=== PATIENT | female | born 1970 | race Caucasian/White ===

== ENCOUNTER → 2016-09-30 | Outpatient (REF) | payer OTHER ==
[~2016-09-30] MED LIST: /ESOM40CA PO; ATIV0.5T3 PO; CARB1TAB20 PO; CETI10TA PO; Cogentin PO; HALD100I2 IM; Haldol PO; KLON0.5T OR; KLON1TAB PO; LATU40TA PO; LITH300C PO; NADO40TA PO; PATANASE NASAL SPRAY; SERT25TA85 PO; TOPA25TA10 PO; ZYRT10TA2 PO; [UNRECOGNIZED DRUG - CODE] PO
[2016-10-03 00:06] LABS: Lyme Disease IgG/IgM Antibodie <0.91 ISR (0.00-0.90); Lyme Disease IgM Ab Quantitati <0.80 index (0.00-0.79)
== END ==
LOC: M LAB REF 16:32
PROVIDERS: ATTEND Internal Medicine
DX: M25.50 Pain in unspecified joint (principal); H53.142 Visual discomfort, left eye

== ENCOUNTER 2018-06-30 07:09 | Day surgery (SDC) | payer OTHER ==
[2018-06-30] MEDS: NS 1,000 ML IV (08:15)
[2018-06-30] MEDS ORDERED: PROPOFOL 200 MG/20 ML VIAL As Ordered ×5 (09:04→09:10)
[2018-06-30] MEDS ORDERED: LIDOCAINE 2% INJ 100 MG/5 ML SDV (FOR ANES.) As Ordered (09:04)
== END 2018-06-30 10:15 | disposition home or self-care (01) ==
LOC: M OPP 07:09
DX: K59.4 Anal spasm (principal); K21.0 Gastro-esophageal reflux disease with esophagitis; K22.2 Esophageal obstruction; R13.10 Dysphagia, unspecified
CPT/HCPCS: 45378

== ENCOUNTER 2018-07-22 22:44 | Emergency (ER) | payer OTHER ==
[~2018-07-22] VITALS: Ht 162.6 cm; Wt 72.7 kg
[~2018-07-22 22:44] MED LIST changes: +FLON1SPR; +GABA600T; +HYOS125TA SL; +NEXI20CA PO; +OLAN15TA; +OLAN2.5T; +SERT25TA PO; -SERT25TA85 PO; +TOPA1TAB PO; -TOPA25TA10 PO; +ZYRT10CA5 PO; -ZYRT10TA2 PO
[2018-07-22 23:30] LABS: BASO # 0.2 10^3/uL (0.0-0.2); BASO % 1.9 % (0.0-1.0); EOS # 0.4 10^3/uL (0.0-0.50); HEMOGLOBIN 13.8 g/dl (12.0-15.5); LYMPH # 3.1 10^3/uL (1.5-4.5); LYMPH % 38.7 % (24.0-44.0); MEAN CORPUSCULAR HEMOGLOBIN 30.1 pg (27.0-33.0); MEAN CORPUSCULAR HGB CONC 33.7 g/dl (32.0-36.5); MEAN CORPUSCULAR VOLUME 89.5 fl (80.0-96.0); MONO # 0.6 10^3/uL (0.0-0.8); MONO % 7.9 % (0.0-5.0); NEUTROPHILS # 3.8 10^3/uL (1.8-7.7); NEUTROPHILS % 46.4 % (36.0-66.0); PLATELET COUNT, AUTOMATED 231 10^3/uL (150-450); RED BLOOD COUNT 4.58 10^6/uL (4.00-5.40); WHITE BLOOD COUNT 8.1 10^3/uL (4.0-10.0)
[2018-07-22 23:40] LABS: INR 0.93; PARTIAL THROMBOPLASTIN TIME 24.8 SECONDS (25.4-37.6); PROTHROMBIN TIME 12.5 SECONDS (12.1-14.4)
[2018-07-22 23:50] LABS: ALBUMIN 4.1 GM/DL (3.2-5.2); ALT/SGPT 35 U/L (12-78); BILIRUBIN,DIRECT 0.1 MG/DL (0.0-0.2); BILIRUBIN,TOTAL 0.5 MG/DL (0.2-1.0); BLOOD UREA NITROGEN 12 MG/DL (7-18); CALCIUM LEVEL 8.9 MG/DL (8.5-10.1); CARBON DIOXIDE LEVEL 25 MEQ/L (21-32); CHLORIDE LEVEL 108 MEQ/L (98-107); CPK CREATINE PHOSPHOKINASE 422 U/L (26-192); CREATININE FOR GFR 0.97 MG/DL (0.55-1.30); GLOMERULAR FILTRATION RATE > 60.0 (>58); GLUCOSE, FASTING 115 MG/DL (70-100); LIPASE 230 U/L (73-393); MB/CK RELATIVE INDEX 0.57 (< OR =4); POTASSIUM SERUM 3.9 MEQ/L (3.5-5.1); SODIUM LEVEL 141 MEQ/L (136-145); TOTAL PROTEIN 7.1 GM/DL (6.4-8.2); TROPONIN I < 0.02 NG/ML (< 0.10)
[2018-07-22] MEDS ORDERED: diphenhydrAMINE INJ 50MG/ML VIAL (J1200) IV STA (23:58)
[2018-07-23] MEDS ORDERED: dexameTHASONE 20 MG/5 ML VIAL (J1100) IV ONE
[2018-07-23] MEDS ORDERED: ISOVUE-370 76% 100ML VIAL (Q9967) As Ordered ONE (00:05)
--- NOTE | 2018-07-23 01:50 | REPVR ---
EXAM: CT Angiography Chest With Contrast EXAM DATE/TIME: 07/22/2018 11:58 PM CLINICAL HISTORY: 47 years old, female; Pain; Chest pain; Type not specified; Additional info: Cp TECHNIQUE: Axial computed tomographic angiography images of the chest with intravenous contrast using CT angiography protocol. All CT scans at this facility use at least one of these dose optimization techniques: automated exposure control; mA and/or kV adjustment per patient size (includes targeted exams where dose is matched to clinical indication); or iterative reconstruction. Coronal and sagittal reformatted images were created and reviewed. MIP reconstructed images were created and reviewed. CONTRAST: 75 ml of iso administered intravenously. COMPARISON: CR Chest, 1 view 07/24/2013 11:25 AM FINDINGS: Pulmonary arteries: The main pulmonary artery measures 16 mm. No pulmonary embolism is identified. Aorta: The ascending thoracic aorta measures 30 mm Lungs: Scattered calcified granulomata. Minimal scattered fibro-atelectatic change, greatest in the lower lobes. Pleural space: Normal. No pneumothorax. No pleural effusion. Heart: Normal. No cardiomegaly. No pericardial effusion. Lymph nodes: Small mediastinal lymph nodes which are within normal limits. Bones/joints: Unremarkable. No acute fracture. Soft tissues: Unremarkable. IMPRESSION: 1. Old granulomatous disease. 2. Minimal scattered fibro-atelectatic change, greatest in the lower lobes. 3. Otherwise negative CTA chest. No pulmonary embolism is identified. Electronically signed by: Jorge Meza On 07/23/2018 01:50:42 AM
[2018-07-23 04:08] LABS: CPK CREATINE PHOSPHOKINASE 355 U/L (26-192); MB/CK RELATIVE INDEX 0.59 (< OR =4); TROPONIN I < 0.02 NG/ML (< 0.10)
[2018-07-23 04:33] VITALS: BP 132/89
--- NOTE | 2018-07-23 04:54 | ECGEPIP ---
Stationary ECG Study [facility] - ED Test Date: 2018-07-22 Pat Name: MEGHANA ANDERSEN Department: Room: - Gender: F Gl Accountant: sean : 1970 Requested By: MEGHAN ESPINOSA Order Number: [id number] Reading MD: Eren Easton Measurements Intervals [place] Rate: 68 P: 39 NV: 144 QRS: 17 QRSD: 83 T: 13 QT: 454 QTc: 484 Interpretive Statements SINUS RHYTHM POSSIBLE LEFT ATRIAL ENLARGEMENT POOR R WAVE PROGRESSION SIMILAR TO 09/20/15 Electronically Signed On 07-23-2018 4:54:08 EST by Eren Easton
--- NOTE | 2018-07-23 04:56 | ECGEPIP ---
Stationary ECG Study [place] - ED Test Date: 2018-07-23 Pat Name: MEGHANA ANDERSEN Department: Room: - Gender: F Dressmaker Or Tailor: sean : 1970 Requested By: MEGHAN ESPINOSA Order Number: [id number] Reading MD: Eren Easton Measurements Intervals [place] Rate: 70 P: 33 [place]: 152 QRS: 10 QRSD: 84 T: 2 QT: 422 QTc: 457 Interpretive Statements SINUS RHYTHM POOR R WAVE PROGRESSION SIMILAR TO 07/22/18 Electronically Signed On 07-23-2018 4:55:41 EST by Eren Easton
== END 2018-07-23 04:55 | disposition home or self-care (01) ==
LOC: M ED 22:44
DX: R07.89 Other chest pain (principal); K21.9 Gastro-esophageal reflux disease without esophagitis; F33.9 Major depressive disorder, recurrent, unspecified; F41.9 Anxiety disorder, unspecified; Z79.899 Other long term (current) drug therapy; Z88.0 Allergy status to penicillin; Z88.5 Allergy status to narcotic agent; Z88.8 Allergy status to other drugs, medicaments and biological substances; Z91.010 Allergy to peanuts; Z91.013 Allergy to seafood; F17.210 Nicotine dependence, cigarettes, uncomplicated
CPT/HCPCS: 71275; 80048; 80076; 82550; 82553; 83690; 84484; 85025; 85610; 85730; 93005; 96374; 99284; J1100; Q9967

== ENCOUNTER → 2018-09-17 | Outpatient (CLI) | payer OTHER ==
[~2018-09-17] MED LIST changes: -GABA600T; +GABA600T4
[2018-09-17 18:45] LABS: BASO # 0.2 10^3/uL (0.0-0.2); BASO % 1.7 % (0.0-1.0); EOS # 0.4 10^3/uL (0.0-0.50); EOS % 3.7 % (0.0-3.0); HEMATOCRIT 48.2 % (36.0-47.0); HEMOGLOBIN 15.8 g/dl (12.0-15.5); LYMPH # 3.7 10^3/uL (1.5-4.5); LYMPH % 34.9 % (24.0-44.0); MEAN CORPUSCULAR HEMOGLOBIN 30.2 pg (27.0-33.0); MEAN CORPUSCULAR HGB CONC 32.8 g/dl (32.0-36.5); MONO # 0.7 10^3/uL (0.0-0.8); MONO % 6.6 % (0.0-5.0); NEUTROPHILS # 5.5 10^3/uL (1.8-7.7); NEUTROPHILS % 52.8 % (36.0-66.0); PLATELET COUNT, AUTOMATED 176 10^3/uL (150-450); RED BLOOD COUNT 5.24 10^6/uL (4.00-5.40); WHITE BLOOD COUNT 10.5 10^3/uL (4.0-10.0)
[2018-09-17 19:01] LABS: THYROID STIMULATING HORMONE 1.41 uIU/ML (0.358-3.740); THYROXINE (T4) 11.3 UG/DL (4.5-12.0)
[2018-09-17 19:11] LABS: TOTAL 25(OH) VITAMIN D 16.9 NG/ML (30.0-100.0); TOTAL T3 86.2 NG/DL (60.0-181.0)
[2018-09-21 14:11] LABS: F002-IgE Milk < 0.10 kU/L (Class 0); F013-IgE Peanut < 0.10 kU/L (Class 0); F014-IgE Soybean < 0.10 kU/L (Class 0); F024-IgE Shrimp 0.33 kU/L (Class I); F026-IgE Pork < 0.10 kU/L (Class 0); F027-IgE Beef < 0.10 kU/L (Class 0); F245-IgE Egg, Whole < 0.10 kU/L (Class 0); F338-IgE Oyster <0.10 kU/L (Class 0); F338-IgE Scallop <0.10 kU/L (Class 0); FX02-IgE Food Mix (Sea Foods) Negative (.)
== END ==
LOC: M SMT 14:11
PROVIDERS: ATTEND Allergy & Immunology Allergy
DX: K14.6 Glossodynia (principal); T78.1XXA Other adverse food reactions, not elsewhere classified, initial encounter; Z91.018 Allergy to other foods

== ENCOUNTER → 2018-09-24 | Outpatient (REF) | payer OTHER | LOC: M SMT 17:13 | PROVIDERS: ATTEND Allergy & Immunology Allergy | DX: Z53.9 Procedure and treatment not carried out, unspecified reason (principal); K14.6 Glossodynia; T78.1XXA Other adverse food reactions, not elsewhere classified, initial encounter ==

== ENCOUNTER → 2019-06-04 | Outpatient (CLI) | payer OTHER ==
[~2019-06-04] MED LIST changes: -/ESOM40CA PO; +NEXI1CAP3 PO; -OLAN2.5T; +OLAN2.5T25; -SERT25TA PO; +SERT25TA85 PO
[2019-06-04 13:05] LABS: BLOOD UREA NITROGEN 12 MG/DL (7-18); CREATININE FOR GFR 1.01 MG/DL (0.55-1.30); GLOMERULAR FILTRATION RATE > 60.0 (>58)
[2019-06-04 13:17] LABS: INR 0.94; PROTHROMBIN TIME 12.2 SECONDS (11.8-14.0)
== END ==
LOC: M SMT 10:33
PROVIDERS: ATTEND Orthopaedic Surgery
DX: Z01.812 Encounter for preprocedural laboratory examination (principal)

== ENCOUNTER → 2019-06-14 | Outpatient (CLI) | payer OTHER ==
[~2019-06-14] MED LIST changes: +ISOVUE-M 300 61% 15ML VIAL (Q9967) As Ordered ONE; +LIDOCAINE 1% MDV 20ML VIAL As Ordered ONE; +OMEP20CA4 PO
--- NOTE | 2019-06-14 12:12 | REP ---
CT lumbar spine following myelogram: 06/14/2019. Indication: Low back and left leg pain. Comparison: None. Technique: Axial images of the lumbar spine were obtained following mammogram procedure with sagittal and coronal reconstructions provided. Please see mammogram report for contrast details. Findings: Vacuum disc phenomena, disc space narrowing and endplate degenerative sequelae are present at L4/L5 and L5/S1. Osteophytic spurring is noted anteriorly at L5/S1. No significant paraspinal soft tissue abnormalities are detected. L1/L2, L2/L3 and L3/L4: There is no evidence of disc herniation or significant spinal canal / neural foraminal narrowing. Symmetric contrast filling of the nerve root sleeves is noted. L4/L5: There is significant left-sided facet arthropathy. Postoperative sequelae are present. There is incomplete filling of the left L5 nerve root within the recess secondary to broad-based left paracentral/lateral disc protrusion, ligamental laxity and facet arthropathy. L5/S1: There is no evidence of disc herniation or significant spinal canal / neural foraminal narrowing. Postoperative sequelae are present. Symmetric contrast filling of the nerve root sleeves is noted. Impression: Degenerative and postoperative sequelae at L4/L5 and L5/S1 as described with left paracentral/lateral disc protrusion and facet arthropathy resulting in minimal contrast filling of the left L5 nerve root sleeve. Electronically Signed by Jonatan Dee DO 06/14/2019 12:04 P
[2019-06-14 12:16] VITALS: BP 135/93
--- NOTE | 2019-06-14 12:42 | REP ---
Lumbar Myelogram The procedure was performed by PILY Keller, under the personal supervision of Dr. Dee. Procedure: The risks and benefits of the procedure were explained to the patient and informed consent was obtained both verbally and written. Directly prior to the start of the procedure, a formal timeout was completed in the procedure room. The patient was placed prone on the fluoroscopy table. The L2-3 interspinous level was localized and confirmed fluoroscopically, and the skin was marked dorsally at this level. The skin was prepped and draped in the usual sterile fashion. 5 mL of 1% lidocaine was utilized for local anesthetic. An 22 gauge 3.5 inches spinal needle was inserted and advanced without significant difficulty into the thecal sac . 7 ml of Isovue - M 300 was injected. The needle was removed and the patient was taken to CT scan for post procedural imaging. The patient tolerated the procedure well and there were no immediate complications. After the appropriate monitored convalescence the patient was discharged from the department. 0.2 minutes of fluoroscopy time was utilized for this procedure. Reviewed by PILY Fatima 06/14/2019 10:25 A Electronically Signed by Jonatan Dee DO 06/14/2019 12:33 P
== END ==
LOC: M IRPRO 08:04
PROVIDERS: ATTEND Orthopaedic Surgery
DX: M51.36 Other intervertebral disc degeneration, lumbar region (principal); M46.96 Unspecified inflammatory spondylopathy, lumbar region; M54.16 Radiculopathy, lumbar region; Z88.0 Allergy status to penicillin; Z88.5 Allergy status to narcotic agent; Z88.8 Allergy status to other drugs, medicaments and biological substances; Z91.018 Allergy to other foods; Z91.040 Latex allergy status; Z91.013 Allergy to seafood; Z91.010 Allergy to peanuts
CPT/HCPCS: 62304; 72131; Q9967

== ENCOUNTER → 2019-06-22 | Outpatient (CLI) | payer OTHER ==
[~2019-06-22] MED LIST changes: -ISOVUE-M 300 61% 15ML VIAL (Q9967) As Ordered ONE; -LIDOCAINE 1% MDV 20ML VIAL As Ordered ONE
--- NOTE | 2019-06-22 15:49 | REP ---
Clinical: Chronic cough . Comparison: 07/24/2013 . Technique: PA and lateral. Findings: The mediastinum and cardiac silhouette are normal. Pacemaker noted. The lung xie are clear and without acute consolidation, effusion, or pneumothorax. The skeletal structures are intact and normal. Impression: 1. No acute cardiopulmonary process. Electronically Signed by Cam Hallman MD 06/22/2019 03:41 P
== END ==
LOC: M RAD 15:18
PROVIDERS: ATTEND Internal Medicine
DX: R05 Cough (principal)

== ENCOUNTER → 2019-07-06 | Outpatient (CLI) | payer OTHER, SELFPAY ==
[~2019-07-06] MED LIST changes: +OMEP-172 PO; -OMEP20CA4 PO
--- NOTE | 2019-07-06 12:35 | REP ---
CT CHEST WITHOUT CONTRAST: Low-dose screening exam. HISTORY: Nicotine dependence. Comparison chest CT studies are from July 23, 2018 and January 18/2009. CT FINDINGS: Digital preliminary airport guide radiograph demonstrates a multilead pacemaker in the right heart via the left side. The lungs are somewhat hyperinflated. There are calcified granulomatous nodules visible in the left lower lobe, right lower lobe, and right upper lobe. These are unchanged from the January 18, 2009 prior study. No new pulmonary nodule is appreciated. No mass or infiltrate is seen. There is some linear fibrosis again noted in the left lower lobe and left base. IMPRESSION: Lung RADS category [address] Repeat screening chest CT recommended in 1 year. Electronically Signed by Gary Shah MD 07/06/2019 05:17 P
== END ==
LOC: M RAD 08:42
PROVIDERS: ATTEND Internal Medicine
DX: F17.210 Nicotine dependence, cigarettes, uncomplicated (principal)

== ENCOUNTER → 2019-08-04 | Outpatient (CLI) | payer OTHER ==
--- NOTE | 2019-08-04 23:15 | ECGEPIP ---
[facility] Test Date: 2019-08-04 Pat Name: MEGHANA ANDERSEN Department: Room: - Gender: Female Trim Technician: ALVARO : 1970 Requested By: Austin Bourne @ [facility] Order Number: [id number] Reading MD: Boy aMrie Measurements Intervals [place] Rate: 77 P: 56 [place]: 139 QRS: 13 QRSD: 80 T: 32 QT: 418 QTc: 474 Interpretive Statements SINUS RHYTHM Poor R wave progression. No significant change compared with 07/23/2018 Electronically Signed on 08-04-2019 23:15:17 EST by Boy Marie
--- NOTE | 2019-08-05 11:23 | REP ---
Clinical: Preoperative assessment . Comparison: 06/22/2019 . Technique: PA and lateral. Findings: The mediastinum and cardiac silhouette are normal. Pacemaker again identified in stable position. The lung xie are clear and without acute consolidation, effusion, or pneumothorax. Trace linear atelectasis in the left mid lung zone cannot be excluded. The skeletal structures are intact and normal. Impression: 1. No acute cardiopulmonary process. Electronically Signed by Cam Hallman MD 08/05/2019 05:35 A
== END ==
LOC: M LAB 07:44
PROVIDERS: ATTEND Orthopaedic Surgery
DX: Z01.818 Encounter for other preprocedural examination (principal); M54.16 Radiculopathy, lumbar region

== ENCOUNTER → 2019-09-21 | Outpatient (REF) | payer OTHER ==
[~2019-09-21] MED LIST changes: -GABA600T4; +GABA600T4 PO; -OLAN15TA; +OLAN15TA PO; -OMEP-172 PO; +OMEP1CAP73 PO
== END ==
LOC: M LAB REF 16:38
PROVIDERS: ATTEND Internal Medicine
DX: N39.0 Urinary tract infection, site not specified (principal); R31.9 Hematuria, unspecified

== ENCOUNTER → 2019-09-30 | Outpatient (REF) | payer OTHER | LOC: M PLALAB 08:23 | PROVIDERS: ATTEND Nurse Practitioner Women's Health | DX: Z53.9 Procedure and treatment not carried out, unspecified reason (principal) ==

== ENCOUNTER → 2020-01-21 | Outpatient (REF) | payer OTHER ==
[2020-01-21 18:17] LABS: APPEARANCE, URINE CLEAR (CLEAR); BACTERIA, URINE AUTO NEGATIVE (NEGATIVE); BILIRUBIN, URINE AUTO NEGATIVE (NEGATIVE); BLOOD, URINE BLOOD NEGATIVE (NEGATIVE); COLOR, URINE STRAW (YELLOW); GLUCOSE, URINE (UA) AUTO NEGATIVE (NEGATIVE); KETONE, URINE AUTO NEGATIVE (NEGATIVE); LEUKOCYTE ESTERASE, URINE AUTO 1+ (NEGATIVE); NITRITE, URINE AUTO NEGATIVE (NEGATIVE); PROTEIN, URINE AUTO NEGATIVE (NEGATIVE); RBC, URINE AUTO 1 /HPF (0-3); SPECIFIC GRAVITY URINE AUTO 1.001 (1.002-1.035); SQUAMOUS EPITHELIAL CELL UR AU 1 /HPF (0-6); UROBILINOGEN, URINE AUTO 0.2 mg/dL (0.0-2.0); WBC, URINE AUTO 1 /HPF (0-3)
== END ==
LOC: M SMT 16:29
PROVIDERS: ATTEND Nurse Practitioner Family
DX: R31.0 Gross hematuria (principal)

== ENCOUNTER → 2020-11-10 | Outpatient (CLI) | payer OTHER ==
[~2020-11-10] MED LIST changes: +ISOVUE-370 76% 100ML VIAL As Ordered ONE
--- NOTE | 2020-11-10 17:17 | REP ---
INDICATION: COUGH. Blood tinged sputum. COMPARISON: Comparison chest CT studies are reviewed from July 06, 2019 and July 23, 2018.. TECHNIQUE: Helical scanning is acquired following the intravenous injection of 75 mL of Isovue 370. 3 mm axial images re-formatted. Coronal and sagittal MPR and coronal MIP images are provided. FINDINGS: Preliminary digital range mounter radiograph demonstrates a bipolar pacemaker in the right heart view of the left side. Junior Database Administrator views otherwise unremarkable. On axial and multiplanar re-formation images there are granulomatous calcifications again noted in the left lower lobe and linear fibrosis is seen in the left lower lobe and left upper lobe and right middle lobe unchanged from comparison CT studies. No new pulmonary nodule is appreciated. There is a noncalcified perifissural soft tissue nodule in the right lower lobe perihilar region displayed on axial cyst page 53 of 110 series 201 of today's study. This is unchanged. There is a calcified granuloma nearby which is also unchanged. No hilar or mediastinal mass or adenopathy is observed. There is good opacification of the pulmonary arterial tree and the thoracic aorta and no filling defect is seen. No evidence of aneurysm or dissection. Normal adrenal glands. Visualized upper abdominal structures are unremarkable. No pleural or pericardial effusion is seen. No bony destructive lesion is appreciated. No endobronchial lesion is seen. IMPRESSION: Pacemaker in place. Bilateral linear fibrotic changes and granulomatous nodules. No active cardiopulmonary disease. <Electronically signed by Quentin Shah > 11/10/20 [id number]
== END ==
LOC: M RAD 16:15
PROVIDERS: ATTEND Internal Medicine
DX: R05 Cough (principal); Z95.0 Presence of cardiac pacemaker
CPT/HCPCS: 71260; Q9967

== ENCOUNTER → 2021-02-02 | Outpatient (CLI) | payer OTHER ==
[~2021-02-02] MED LIST changes: +CLON2TAB7 PO; +FLUT11IN; +HYDR-3715 PO; +HYDR50TA30; -ISOVUE-370 76% 100ML VIAL As Ordered ONE; +KLON1TAB; -LATU40TA PO; +LATU40TA2 PO; +MECL-136 PO; -OLAN15TA PO; +OLAN15TA13 PO; +SERT50TA29 PO; +SING10TA32 PO; +TRAZ-252; +ZOLO100T PO
== END ==
LOC: M RAD 08:03
PROVIDERS: ATTEND Internal Medicine Gastroenterology
DX: K80.20 Calculus of gallbladder without cholecystitis without obstruction (principal); R10.10 Upper abdominal pain, unspecified

== ENCOUNTER → 2021-03-29 | Outpatient (CLI) | payer OTHER ==
[~2021-03-29] MED LIST changes: +LATU40TA PO; -LATU40TA2 PO
== END ==
LOC: M LABSMTC 10:34
PROVIDERS: ATTEND Anesthesiology
DX: Z11.52 Encounter for screening for COVID-19 (principal)

== ENCOUNTER 2021-04-03 08:05 | Day surgery (SDC) | payer OTHER ==
[~2021-04-03] VITALS: Ht 162.6 cm; Wt 371.9 kg
[~2021-04-03 08:05] MED LIST changes: -HYDR-3715 PO; +LIDOCAINE 1% MDV 20ML VIAL SQ PRN; +LR 1,000 ML IV ONE
[2021-04-03] MEDS ORDERED: LIDOCAINE 2% 100MG/5ML SDV (FOR ANES.) As Ordered ONE (08:30)
[2021-04-03] MEDS ORDERED: ROCURONIUM BROMIDE 50 MG/5 ML VIAL As Ordered ONE ×2 (08:30→11:12)
[2021-04-03] MEDS ORDERED: propofoL 200 MG/20 ML VIAL As Ordered ONE (08:30)
[2021-04-03] MEDS ORDERED: MIDAZOLAM INJ 2MG/2ML VIAL (J2250 PER 1MG) As Ordered ONE (08:31)
[2021-04-03] MEDS ORDERED: fentaNYL 250 MCG/5 ML INJECTION (J3010) As Ordered ONE (08:31)
[2021-04-03] MEDS ORDERED: dexameTHASONE 4 MG/ML 1ML VIAL (J1100 PER 1MG) As Ordered ONE (08:31)
[2021-04-03] MEDS ORDERED: ONDANSETRON 4MG/2ML VIAL As Ordered ONE (08:32)
[2021-04-03] MEDS ORDERED: ACETAMINOPHEN 1000MG 100ML IV BTL (OFIRMEV) (J0131 PER 10MG) As Ordered ONE (08:46)
[2021-04-03] MEDS ORDERED: SUGAMMADEX SODIUM 500 MG/5 ML VIAL (BRIDION) As Ordered ONE (09:51)
[2021-04-03] MEDS ORDERED: KETOROLAC 60MG 2ML VIAL As Ordered ONE (09:53)
[2021-04-03] MEDS ORDERED: BUPIVACAINE HCL 0.25% 30ML VIAL As Ordered ONE (10:21)
[2021-04-03] MEDS ORDERED: SCOPOLAMINE 1MG TRANSDERMAL PATCH TOP ONE (10:35)
[2021-04-03] MEDS ORDERED: PHENYLephrine 500MCG 5ML (100MCG/ML) SYRINGE As Ordered ONE (11:27)
[2021-04-03] MEDS ORDERED: HYDR-3715 PO (12:43)
[2021-04-03] MEDS ORDERED: HYDROmorphone HCL 2 MG/ML 1ML VIAL As Ordered ONE (12:52)
[2021-04-03] MEDS: HYDROMORPHONE HCL 0.5 MG/ 0.5 ML SYRINGE (J1170 PER 1) IV PRN ×2 (12:54→12:59)
[2021-04-03] MEDS ORDERED: NORCO, ANEXSIA 5/325MG TABLET (HYDROcodone/ACETAMINOPHEN) PO PRN (13:00)
[2021-04-03] MEDS ORDERED: fentaNYL 100 MCG/2 ML INJECTION (J3010) IV PRN (13:00)
[2021-04-03] MEDS ORDERED: LR 1,000 ML IV SCH (13:00)
[2021-04-03] MEDS ORDERED: diphenhydrAMINE 50MG/ML VIAL (J1200) IV ONE (13:05)
[2021-04-03 15:18] VITALS: BP 141/73
--- NOTE | 2021-04-05 07:42 | RO ---
OPERATIVE NOTE DATE OF OPERATION: 04/03/2021 PREOPERATIVE DIAGNOSIS: Symptomatic gallstones. POSTOPERATIVE DIAGNOSIS: Symptomatic gallstones. PROCEDURE: Robotic-assisted laparoscopic cholecystectomy. SURGEON: Kevin Carver MD VP RHEUMATOLOGY: HEIDI Coreas. Gwendolyn's assistance was essential in managing the [employer] robotic equipment. She assisted in placement of the trocars, passages of instruments, removal of the specimen and closure of the trocar sites. ANESTHESIA: General. INDICATIONS FOR THE PROCEDURE: The patient is a 50-year-old woman with a long history of some episodic upper abdominal discomfort. Her symptoms are not typical of biliary colic but she has undergone a thorough workup without any significant findings other than cholelithiasis. She is now for a laparoscopic cholecystectomy using the da [employer] Xi robot. DESCRIPTION OF PROCEDURE: The patient was placed on the table in a supine position. She was placed under general endotracheal anesthesia. The patient's abdomen was prepped and draped in a sterile fashion. A 0.25% Marcaine was infiltrated at each of the trocar sites as needed. A short transverse incision was made in the left upper quadrant and a Veress needle was inserted. After a positive hanging drop test, the abdomen was inflated with carbon dioxide gas. An 8-mm port was then placed through this incision. Inspection showed no evidence of Veress needle or trocar injury. Inspection showed no significant adhesions despite an old low midline scar. A second 8-mm port was placed just above the umbilicus and two 8-mm ports were placed in the right lower quadrant. The patient was tilted to an approximately 10-degree reverse Trendelenburg position and rolled approximately 5 degrees to the left. The patient cart of the da [employer] Xi robot was brought into position. The endoscope arm was docked to the supraumbilical port. Targeting took place in the right upper quadrant. The additional robotic arms were then docked to the remaining trocars. A hook cautery was placed in the left upper quadrant with a fenestrated bipolar and a grasping retractor placed in the right lower quadrant. I then moved to the control console to proceed with the operation. The edge of the liver was elevated and the gallbladder was identified. The gallbladder appeared to be quite shrunken and empty. There were two nodular areas, one in the fundus and one in closer to the gallbladder neck that apparently represented stones. The gallbladder was grasped and elevated. There were some filmy adhesions to the surrounding structures and these were divided using the hook cautery. Dissection then began in the pericholecystic tissues at the gallbladder neck. With careful dissection with the hook cautery, the cystic duct and the cholecystic artery were then identified. Both structures were clearly dissected free and doubly clipped with Hem-o-rodney clips and divided. The gallbladder was then dissected free from the gallbladder bed using cautery dissection. A second branch of the artery was identified coursing up the lateral aspect of the gallbladder and this was also clipped and divided. The gallbladder was then completely dissected free from the gallbladder bed and placed in an Endopouch. Blood loss was minimal. This was removed by placing a sponge into the abdomen to blot up the small amount of spilled blood and this was then removed. Inspection showed no evidence of any further bleeding and no sign of bile leak. The robotic instruments were then removed. The robot was undocked and withdrawn. The patient was returned to a flat position and I returned to the patient's side to remove the specimen. The string of the specimen bag was recovered through the supraumbilical site. It was necessary to extend the skin and fascial incision slightly to allow the passage of the gallbladder with the contained stones. The specimen was sent for permanent pathology. The fascia at the supraumbilical site was closed with a running suture of 2-0 PDS. The skin incisions were all closed with buried 4-0 Vicryl and Steri-Strips. Light dressings were applied. The patient tolerated the procedure well without apparent complication. She was awakened in the operating room, extubated and moved to the recovery room in stable condition. STACY
== END 2021-04-03 15:25 | disposition home or self-care (01) ==
LOC: M SDC 08:05
PROVIDERS: ATTEND Surgery
DX: K80.12 Calculus of gallbladder with acute and chronic cholecystitis without obstruction (principal); I45.81 Long QT syndrome; E78.5 Hyperlipidemia, unspecified; G43.909 Migraine, unspecified, not intractable, without status migrainosus; J44.9 Chronic obstructive pulmonary disease, unspecified; K58.8 Other irritable bowel syndrome; K21.9 Gastro-esophageal reflux disease without esophagitis; F41.9 Anxiety disorder, unspecified; Z95.0 Presence of cardiac pacemaker; Z90.710 Acquired absence of both cervix and uterus; Z88.0 Allergy status to penicillin; Z88.5 Allergy status to narcotic agent; Z88.6 Allergy status to analgesic agent; Z88.8 Allergy status to other drugs, medicaments and biological substances; Z91.040 Latex allergy status; Z79.899 Other long term (current) drug therapy
CPT/HCPCS: 47562; 88304; J0131; J1100; J1200; J2250; J2370; J2405; J3010; S2900

== ENCOUNTER 2021-06-20 08:44 | Emergency (ER) | payer OTHER ==
[~2021-06-20] VITALS: Ht 162.6 cm; Wt 81.8 kg
[~2021-06-20 08:44] MED LIST changes: +HYDR-3715 PO; -LATU40TA PO; +LATU40TA2 PO; -LIDOCAINE 1% MDV 20ML VIAL SQ PRN; -LR 1,000 ML IV ONE
[2021-06-20] MEDS ORDERED: LORazepam 2 MG/ML VIAL IV STA (08:54)
[2021-06-20 09:54] LABS: BASO # 0.2 10^3/uL (0.0-0.2); BASO % 1.3 % (0.0-1.0); EOS # 0.4 10^3/uL (0.0-0.5); EOS % 3.6 % (0.0-3.0); HEMOGLOBIN 13.3 g/dl (12.0-15.5); LYMPH % 26.6 % (24.0-44.0); MEAN CORPUSCULAR HGB CONC 32.4 g/dl (32.0-36.5); MEAN CORPUSCULAR VOLUME 92.3 fl (80.0-96.0); MONO # 0.8 10^3/uL (0.0-0.8); MONO % 6.8 % (2.0-8.0); NEUTROPHILS # 6.8 10^3/uL (1.5-8.5); NEUTROPHILS % 61.4 % (36.0-66.0); PLATELET COUNT, AUTOMATED 340 10^3/uL (150-450); RED BLOOD COUNT 4.44 10^6/uL (4.00-5.40); WHITE BLOOD COUNT 11.1 10^3/uL (4.0-10.0)
[2021-06-20 10:14] LABS: CALCIUM LEVEL 9.3 MG/DL (8.5-10.1); CREATININE FOR GFR 1.07 MG/DL (0.55-1.30); GLOMERULAR FILTRATION RATE 57.8 (>51); POTASSIUM SERUM 4.6 MEQ/L (3.5-5.1)
[2021-06-20 12:00] VITALS: BP 156/80
== END 2021-06-20 12:11 | disposition home or self-care (01) ==
LOC: M ED 08:44
DX: F40.01 Agoraphobia with panic disorder (principal); J44.9 Chronic obstructive pulmonary disease, unspecified; F17.200 Nicotine dependence, unspecified, uncomplicated; Z79.899 Other long term (current) drug therapy; Z88.0 Allergy status to penicillin; Z88.6 Allergy status to analgesic agent; Z88.5 Allergy status to narcotic agent; Z88.8 Allergy status to other drugs, medicaments and biological substances; Z91.040 Latex allergy status; Z91.010 Allergy to peanuts; Z91.013 Allergy to seafood
CPT/HCPCS: 80047; 80048; 84484; 85025; 96374; 99284; J2060

== ENCOUNTER → 2021-08-09 | Outpatient (CLI) | payer OTHER ==
[~2021-08-09] MED LIST changes: +GASTROGRAFIN SOLUTION 30ML (Q9963) As Ordered ONE; +LATU40TA PO; -LATU40TA2 PO
== END ==
LOC: M RAD 11:44
PROVIDERS: ATTEND Internal Medicine
DX: R10.9 Unspecified abdominal pain (principal)
CPT/HCPCS: 74176; Q9963

== ENCOUNTER → 2021-08-09 | Outpatient (REF) | payer OTHER ==
[~2021-08-09] MED LIST changes: -GASTROGRAFIN SOLUTION 30ML (Q9963) As Ordered ONE
[2021-08-09 17:05] LABS: C REACTIVE PROTEIN QUANTITATIV 0.92 MG/DL (0.00-0.30)
== END ==
LOC: M LAB REF 16:13
PROVIDERS: ATTEND Internal Medicine
DX: R10.9 Unspecified abdominal pain (principal)

== ENCOUNTER → 2021-08-31 | Outpatient (CLI) | payer OTHER ==
[~2021-08-31] MED LIST changes: -LATU40TA PO; +LATU40TA2 PO
== END ==
LOC: M WHC 10:48
PROVIDERS: ATTEND Internal Medicine
DX: Z12.31 Encounter for screening mammogram for malignant neoplasm of breast (principal)
CPT/HCPCS: 76642; 77066; G0279

== ENCOUNTER 2021-10-26 11:13 | Emergency (ER) | payer OTHER ==
[~2021-10-26] VITALS: Ht 165.1 cm; Wt 55.5 kg
[2021-10-26 11:13] VITALS: BP 137/100
[2021-10-26] MEDS ORDERED: ACET-683 PO (12:57)
[2021-10-26] MEDS ORDERED: diazePAM 10MG/2ML SYRINGE (J3360 PER 5MG) IV ONE ×2 (14:05→15:55)
[2021-10-26] MEDS ORDERED: LIDOCAINE 5% (LIDODERM) PATCH TD ONE (14:05)
[2021-10-26] MEDS ORDERED: methylPREDNISolone 125MG 2ML VIAL IV ONE (14:05)
[2021-10-26] MEDS ORDERED: ACETAMINOPHEN *IV* 1,000 MG in IV 1 EA IV ONE (14:05)
[2021-10-26] MEDS ORDERED: MORPHINE 4 MG/ML 1ML VIAL/SYRINGE IV ONE (17:15)
[2021-10-26] MEDS ORDERED: ASPE4PAD TOP (18:12)
[2021-10-26] MEDS ORDERED: PRED20TA PO (18:12)
[2021-10-26] MEDS ORDERED: METH-1165 PO (18:12)
[2021-10-26] MEDS ORDERED: ROLLMIS8 XX (18:17)
[2021-10-26] MEDS ORDERED: **NOTE PATIENT COMMENT** MISC XX SCH (21:00)
== END 2021-10-26 18:34 | disposition home or self-care (01) ==
LOC: M ED 11:13
DX: M54.17 Radiculopathy, lumbosacral region (principal); M54.32 Sciatica, left side; J44.9 Chronic obstructive pulmonary disease, unspecified; G89.29 Other chronic pain; Z86.718 Personal history of other venous thrombosis and embolism; Z95.0 Presence of cardiac pacemaker; Z88.0 Allergy status to penicillin; Z88.5 Allergy status to narcotic agent; Z88.8 Allergy status to other drugs, medicaments and biological substances; Z91.010 Allergy to peanuts; Z91.018 Allergy to other foods; Z91.040 Latex allergy status; Z79.899 Other long term (current) drug therapy
CPT/HCPCS: 72131; 93971; 96374; 96375; 96376; 99283; J0131; J2270; J2930; J3360

== ENCOUNTER → 2021-12-07 | Outpatient (CLI) | payer OTHER ==
[~2021-12-07] MED LIST changes: +ACET-683 PO; +ASPE4PAD TOP; +METH-1165 PO; +PRED20TA PO; +ROLLMIS8 XX
[2021-12-07 10:10] LABS: MEAN CORPUSCULAR HEMOGLOBIN 30.8 pg (27.0-33.0); MEAN CORPUSCULAR HGB CONC 34.1 g/dl (32.0-36.5); MEAN CORPUSCULAR VOLUME 90.3 fl (80.0-96.0); PLATELET COUNT, AUTOMATED 299 10^3/uL (150-450); RED BLOOD COUNT 4.54 10^6/uL (4.00-5.40); WHITE BLOOD COUNT 9.9 10^3/uL (4.0-10.0)
[2021-12-07 10:22] LABS: INR 0.88; PROTHROMBIN TIME 12.3 SECONDS (12.7-14.5)
[2021-12-07 10:35] LABS: CALCIUM LEVEL 9.7 MG/DL (8.5-10.1); CREATININE FOR GFR 1.04 MG/DL (0.55-1.30); GLOMERULAR FILTRATION RATE 59.5 (>51); POTASSIUM SERUM 4.7 MEQ/L (3.5-5.1)
== END ==
LOC: M LAB 09:20
PROVIDERS: ATTEND Internal Medicine
DX: I45.81 Long QT syndrome (principal); Z79.899 Other long term (current) drug therapy

== ENCOUNTER → 2022-02-26 | Outpatient (CLI) | payer OTHER | LOC: M RAD 07:39 | PROVIDERS: ATTEND Internal Medicine | DX: K76.0 Fatty (change of) liver, not elsewhere classified (principal) ==

== ENCOUNTER → 2022-03-05 | Outpatient (REF) | payer OTHER ==
[2022-03-06 13:04] LABS: PERCENT SATURATION 16.4 % (13.2-45.0)
== END ==
LOC: M LAB REF 11:18
PROVIDERS: ATTEND Internal Medicine
DX: K76.0 Fatty (change of) liver, not elsewhere classified (principal); R74.8 Abnormal levels of other serum enzymes

== ENCOUNTER → 2022-04-12 | Outpatient (CLI) | payer OTHER ==
[~2022-04-12] MED LIST changes: +E-Z-GAS II EFFERVESCENT PACKET (SODIUM BICARB./CITRIC ACID/SIMETHICONE) As Ordered ONE; +E-Z-HD 98% w/w 340GM SUSP BTL As Ordered ONE; +E-Z-PAQUE 96% w/w SUSP 176GM BTL As Ordered ONE
== END ==
LOC: M RAD 08:30
PROVIDERS: ATTEND Internal Medicine
DX: K21.9 Gastro-esophageal reflux disease without esophagitis (principal); R10.13 Epigastric pain

== ENCOUNTER 2022-10-24 12:04 | Outpatient (RCR) | payer OTHER ==
[~2022-10-24 12:04] MED LIST changes: -E-Z-GAS II EFFERVESCENT PACKET (SODIUM BICARB./CITRIC ACID/SIMETHICONE) As Ordered ONE; -E-Z-HD 98% w/w 340GM SUSP BTL As Ordered ONE; -E-Z-PAQUE 96% w/w SUSP 176GM BTL As Ordered ONE; +MONT-5 PO; -SING10TA32 PO
== END 2022-10-25 ==
LOC: M PT 12:04
PROVIDERS: ATTEND Dentist
DX: M26.609 Unspecified temporomandibular joint disorder, unspecified side (principal)

== ENCOUNTER → 2022-12-12 | Outpatient (REF) | payer OTHER ==
[2022-12-14 21:09] LABS: ANTINUCLEAR ANTIBODIES DIRECT Negative (Negative); CYCLIC CITRULLINATED PEPTIDE 5 units (0-19)
== END ==
LOC: M LAB REF 16:23
PROVIDERS: ATTEND Internal Medicine
DX: M25.50 Pain in unspecified joint (principal)

== ENCOUNTER 2023-01-09 13:23 | Inpatient (IN) | payer OTHER ==
[~2023-01-09] VITALS: Ht 162.6 cm; Wt 76.4 kg
[~2023-01-09 13:23] MED LIST changes: -FLUT11IN; +FLUT12AE6
[2023-01-09 14:42] LABS: HEMATOCRIT 42.4 % (36.0-47.0); MEAN CORPUSCULAR VOLUME 90.8 fl (80.0-96.0); PLATELET COUNT, AUTOMATED 291 10^3/uL (150-450); RED BLOOD COUNT 4.67 10^6/uL (4.00-5.40); WHITE BLOOD COUNT 12.1 10^3/uL (4.0-10.0)
[2023-01-09 15:13] LABS: AMPHETAMINES LEVEL URINE NEGATIVE (NEGATIVE); BARBITURATES URINE NEGATIVE (NEGATIVE); BENZODIAZEPINES URINE NEGATIVE (NEGATIVE); COCAINE METABOLITE URINE NEGATIVE (NEGATIVE)
[2023-01-09 15:14] LABS: CANNABINOIDS URINE NEGATIVE (NEGATIVE); METHADONE URINE NEGATIVE (NEGATIVE); OPIATES URINE NEGATIVE (NEGATIVE); PHENCYCLIDINE URINE NEGATIVE (NEGATIVE)
[2023-01-09 15:16] LABS: ETHYL ALCOHOL (ETHANOL) < 0.003 % (0.000-0.010)
[2023-01-09 15:17] LABS: ACETAMINOPHEN LEVEL < 2.0 UG/ML (10.0-20.0); SALICYLATE LEVEL < 3.0 MG/DL (<30)
[2023-01-09 15:18] LABS: ALBUMIN 4.1 G/DL (3.2-5.2); ALKALINE PHOSPHATASE 174 U/L (46-116); ALT/SGPT 29 U/L (7.0-40); AST/SGOT 23 U/L (<34); BILIRUBIN,DIRECT 0.1 MG/DL (<0.4); BILIRUBIN,TOTAL 0.3 MG/DL (0.3-1.2); BLOOD UREA NITROGEN 9 MG/DL (9-23); CALCIUM LEVEL 9.1 MG/DL (8.5-10.1); CARBON DIOXIDE LEVEL 27 MMOL/L (20-31); CHLORIDE LEVEL 105 MMOL/L (98-107); CREATININE FOR GFR 0.96 MG/DL (0.55-1.30); GLOMERULAR FILTRATION RATE > 60.0 (>51); GLUCOSE, FASTING 96 MG/DL (60-100); POTASSIUM SERUM 4.2 MMOL/L (3.5-5.1); SODIUM LEVEL 139 MMOL/L (136-145); TOTAL PROTEIN 6.7 G/DL (5.7-8.2)
[2023-01-09 15:20] LABS: THYROID STIMULATING HORMONE 1.336 uIU/ML (0.55-4.78)
[2023-01-09] MEDS ORDERED: MAALOX 30 ML SUSP *UDC PO PRN (18:15)
[2023-01-09] MEDS ORDERED: OLANZapine ORAL DISINTEGRATING TAB 5MG PO PRN (18:15)
[2023-01-09] MEDS ORDERED: MOM 30ML SUSPENSION UDC PO PRN (18:15)
[2023-01-09] MEDS ORDERED: ACETAMINOPHEN TAB 650MG DOSE (2X325MG) PO PRN (18:15)
[2023-01-09] MEDS ORDERED: HYDR-643 PO (19:24)
[2023-01-09] MEDS ORDERED: TRAZ-252 PO (19:24)
[2023-01-09] MEDS ORDERED: METH-1165 PO (19:24)
[2023-01-09] MEDS ORDERED: OLAN1TAB20 PO (19:27)
[2023-01-09] MEDS ORDERED: NADO20TA PO (19:27)
[2023-01-09] MEDS ORDERED: NAPR-885 PO (19:27)
[2023-01-09] MEDS ORDERED: VRAY3CAP PO (19:27)
[2023-01-09] MEDS ORDERED: HOME MED LIST COMPLETE! XX SCH (19:30)
[2023-01-09 21:00] VITALS: BP 158/82; TEMP 98.6; O2SAT 97
[2023-01-09] MEDS: traZODone 50 MG TAB PO PRN (21:11)
[2023-01-10 06:35] VITALS: BP 152/97; TEMP 96.5; O2SAT 96
[2023-01-10] MEDS ORDERED: NAPROXEN 250 MG TAB PO PRN (09:10)
[2023-01-10] MEDS: GABAPENTIN 300 MG CAP PO SCH (09:53)
[2023-01-10] MEDS: OMEPRAZOLE 20MG CAP PO SCH (09:53)
[2023-01-10] MEDS: SERTRALINE 100 MG TAB PO SCH (09:53)
[2023-01-10] MEDS: PALIPERIDONE 3MG ER TAB (INVEGA) PO SCH ×2 (09:54→21:05)
[2023-01-10] MEDS: NICOTINE 21MG/24HR 1 EA TRANSDERMAL TD SCH (09:55)
[2023-01-10] MEDS: methocarbamoL 750 MG TAB PO SCH ×3 (10:55→21:05)
[2023-01-10] MEDS: NADOLOL 20MG TABLET PO SCH (10:57)
[2023-01-10 17:58] VITALS: BP 142/90; TEMP 96.8; O2SAT 95
[2023-01-10] MEDS: traZODone 50 MG TAB PO PRN (22:16)
[2023-01-11 06:25] VITALS: BP 135/68; TEMP 97.4; O2SAT 98
[2023-01-11 06:55] LABS: CHOLESTEROL RISK RATIO 5.98 (<5); HDL CHOLESTEROL 32.6 MG/DL (>40); LDL CHOLESTEROL 111.2 MG/DL (<100); NON-HDL-C 162.4 MG/DL
[2023-01-11] MEDS: GABAPENTIN 300 MG CAP PO SCH (08:18)
[2023-01-11] MEDS: PALIPERIDONE 3MG ER TAB (INVEGA) PO SCH ×2 (08:18→20:12)
[2023-01-11] MEDS: SERTRALINE 100 MG TAB PO SCH (08:19)
[2023-01-11] MEDS: methocarbamoL 750 MG TAB PO SCH ×3 (08:19→20:13)
[2023-01-11] MEDS: NICOTINE 21MG/24HR 1 EA TRANSDERMAL TD SCH (08:19)
[2023-01-11] MEDS: OMEPRAZOLE 20MG CAP PO SCH (08:19)
[2023-01-11] MEDS: NADOLOL 20MG TABLET PO SCH (08:21)
[2023-01-11 18:00] VITALS: BP 140/82; TEMP 96.4
[2023-01-11] MEDS: traZODone 50 MG TAB PO PRN (20:12)
[2023-01-11] MEDS: diphenhydrAMINE 25MG CAP PO PRN (21:59)
[2023-01-12 06:54] VITALS: BP 134/85; TEMP 98.7; O2SAT 97
[2023-01-12] MEDS: methocarbamoL 750 MG TAB PO SCH ×3 (08:37→20:03)
[2023-01-12] MEDS: PALIPERIDONE 3MG ER TAB (INVEGA) PO SCH ×2 (08:37→20:03)
[2023-01-12] MEDS: SERTRALINE 100 MG TAB PO SCH (08:38)
[2023-01-12] MEDS: OMEPRAZOLE 20MG CAP PO SCH (08:38)
[2023-01-12] MEDS: NADOLOL 20MG TABLET PO SCH (08:38)
[2023-01-12] MEDS: NICOTINE 21MG/24HR 1 EA TRANSDERMAL TD SCH (08:38)
[2023-01-12] MEDS: GABAPENTIN 300 MG CAP PO SCH (08:38)
[2023-01-12 18:00] VITALS: BP 150/90; TEMP 96.5
[2023-01-12] MEDS: traZODone 50 MG TAB PO PRN (20:03)
[2023-01-12] MEDS: diphenhydrAMINE 25MG CAP PO PRN (20:03)
[2023-01-13 06:44] VITALS: BP 152/78; TEMP 97.8; O2SAT 95
[2023-01-13 08:38] VITALS: BP 128/72
[2023-01-13] MEDS: methocarbamoL 750 MG TAB PO SCH ×3 (08:41→20:49)
[2023-01-13] MEDS: OMEPRAZOLE 20MG CAP PO SCH (08:42)
[2023-01-13] MEDS: PALIPERIDONE 3MG ER TAB (INVEGA) PO SCH ×2 (08:42→20:49)
[2023-01-13] MEDS: SERTRALINE 100 MG TAB PO SCH (08:42)
[2023-01-13] MEDS: GABAPENTIN 300 MG CAP PO SCH (08:42)
[2023-01-13] MEDS: NADOLOL 20MG TABLET PO SCH (08:42)
[2023-01-13] MEDS: NICOTINE 21MG/24HR 1 EA TRANSDERMAL TD SCH (08:44)
[2023-01-13 15:07] VITALS: BP 133/73; TEMP 97.9; O2SAT 96
[2023-01-13] MEDS: diphenhydrAMINE 25MG CAP PO PRN (20:49)
[2023-01-13] MEDS: traZODone 50 MG TAB PO PRN (20:49)
[2023-01-14 07:05] VITALS: BP 136/78; TEMP 97.9; O2SAT 94
[2023-01-14] MEDS: NICOTINE 21MG/24HR 1 EA TRANSDERMAL TD SCH (08:07)
[2023-01-14] MEDS: SERTRALINE 100 MG TAB PO SCH (08:10)
[2023-01-14] MEDS: OMEPRAZOLE 20MG CAP PO SCH (08:10)
[2023-01-14] MEDS: methocarbamoL 750 MG TAB PO SCH (08:10)
[2023-01-14] MEDS: GABAPENTIN 300 MG CAP PO SCH (08:10)
[2023-01-14] MEDS: PALIPERIDONE 3MG ER TAB (INVEGA) PO SCH (08:10)
[2023-01-14 08:12] VITALS: BP 142/92
[2023-01-14] MEDS: NADOLOL 20MG TABLET PO SCH (08:12)
[2023-01-14] MEDS ORDERED: risperiDONE LONG-ACTING 25MG 2ML INJ IM SCH (09:00)
[2023-01-14] MEDS ORDERED: TRAZ-252 PO (09:53)
[2023-01-14] MEDS ORDERED: OLAN5ZYD PO (09:53)
[2023-01-14] MEDS ORDERED: ZOLO100T PO (09:53)
[2023-01-14] MEDS ORDERED: RISP25INJ IM (09:53)
[2023-01-14] MEDS ORDERED: HYDR-643 PO (09:53)
[2023-01-14] MEDS ORDERED: PALI1TAB2 PO (09:53)
[2023-01-14] MEDS ORDERED: GABA-282 PO (09:53)
[2023-01-14] MEDS ORDERED: NICO21PAT TD (09:53)
[2023-01-14] MEDS ORDERED: BENZ1TAB5 PO (09:54)
[2023-01-28] MEDS ORDERED: risperiDONE LONG-ACTING 25MG 2ML INJ IM SCH (09:00)
== END 2023-01-14 14:16 | disposition home or self-care (01) | DRG 885 ==
LOC: M ED 13:23 → M PSY 18:11
PROVIDERS: ADMIT Student in an Organized Health Care Education/Training Program; ATTEND Student in an Organized Health Care Education/Training Program
DX: F31.9 Bipolar disorder, unspecified (principal); F29 Unspecified psychosis not due to a substance or known physiological condition; F10.10 Alcohol abuse, uncomplicated; F17.200 Nicotine dependence, unspecified, uncomplicated; Z62.810 Personal history of physical and sexual abuse in childhood; Z56.0 Unemployment, unspecified; Z95.810 Presence of automatic (implantable) cardiac defibrillator; I45.81 Long QT syndrome; Z79.899 Other long term (current) drug therapy; Z88.0 Allergy status to penicillin; Z88.5 Allergy status to narcotic agent; Z88.6 Allergy status to analgesic agent; Z88.8 Allergy status to other drugs, medicaments and biological substances; Z91.010 Allergy to peanuts; Z91.013 Allergy to seafood; Z91.040 Latex allergy status; Z91.148 Patient's other noncompliance with medication regimen for other reason

== ENCOUNTER 2023-01-29 16:13 | Outpatient (CLI) | payer OTHER ==
[~2023-01-29] VITALS: Ht 162.6 cm; Wt 76.4 kg
[~2023-01-29 16:13] MED LIST changes: +BENZ1TAB5 PO; +GABA-282 PO; +HYDR-643 PO; +NADO20TA PO; +NAPR-885 PO; +NICO21PAT TD; +OLAN1TAB20 PO; +OLAN5ZYD PO; +PALI1TAB2 PO; +RISP25INJ IM; +TRAZ-252 PO; +VRAY3CAP PO
[2023-01-29 16:30] VITALS: BP 146/82; O2SAT 97
[2023-01-29] MEDS ORDERED: risperiDONE LONG-ACTING 25MG 2ML INJ IM ONE (16:53)
[2023-01-31] MEDS ORDERED: PALI1TAB2 PO (13:43)
[2023-01-31] MEDS ORDERED: BENZ1TAB5 PO (13:43)
[2023-01-31] MEDS ORDERED: TRAZ-252 PO (13:43)
[2023-01-31] MEDS ORDERED: GABA-282 PO (13:43)
[2023-01-31] MEDS ORDERED: ZOLO100T PO (13:43)
[2023-01-31] MEDS ORDERED: NICO21PAT TD (13:43)
[2023-01-31] MEDS ORDERED: HYDR-643 PO (13:43)
== END 2023-01-29 17:00 | disposition home or self-care (01) ==
LOC: M INFU 16:13
PROVIDERS: ATTEND Student in an Organized Health Care Education/Training Program
DX: F20.9 Schizophrenia, unspecified (principal); Z88.0 Allergy status to penicillin; Z88.6 Allergy status to analgesic agent; Z88.5 Allergy status to narcotic agent; Z88.8 Allergy status to other drugs, medicaments and biological substances
CPT/HCPCS: 96372; J2794

== ENCOUNTER → 2023-02-21 | Outpatient (CLI) | payer OTHER | LOC: M RAD 09:13 | PROVIDERS: ATTEND Internal Medicine | DX: R10.2 Pelvic and perineal pain (principal); R31.9 Hematuria, unspecified ==

== ENCOUNTER 2023-02-26 16:20 | Outpatient (CLI) | payer OTHER ==
[~2023-02-26] VITALS: Ht 162.6 cm; Wt 75.0 kg
[2023-02-26 16:20] VITALS: BP 121/72; O2SAT 99
[~2023-02-26 16:20] MED LIST changes: +risperiDONE LONG-ACTING 25MG 2ML INJ IM ONE
[2023-02-26] MEDS ORDERED: RISPERDAL CONSTA 25 MG IM ONE (16:30)
[2023-02-26 16:50] VITALS: BP 130/68; O2SAT 99
== END 2023-02-26 16:50 | disposition home or self-care (01) ==
LOC: M INFU 16:20
PROVIDERS: ATTEND Student in an Organized Health Care Education/Training Program
DX: F20.9 Schizophrenia, unspecified (principal); Z88.0 Allergy status to penicillin; Z88.6 Allergy status to analgesic agent; Z88.5 Allergy status to narcotic agent; Z88.8 Allergy status to other drugs, medicaments and biological substances

== ENCOUNTER → 2023-03-14 | Outpatient (REF) | payer OTHER ==
[~2023-03-14] MED LIST changes: -risperiDONE LONG-ACTING 25MG 2ML INJ IM ONE
== END ==
LOC: M LAB REF 16:10
PROVIDERS: ATTEND Internal Medicine
DX: D72.829 Elevated white blood cell count, unspecified (principal)

== ENCOUNTER → 2023-03-17 | Outpatient (CLI) | payer OTHER | LOC: M OUTALCOH 07:57 | PROVIDERS: ATTEND Psychiatry & Neurology Psychiatry | DX: F10.10 Alcohol abuse, uncomplicated (principal) ==

== ENCOUNTER 2023-05-21 06:50 | Day surgery (SDC) | payer OTHER ==
[~2023-05-21] VITALS: Ht 162.6 cm; Wt 65.2 kg
[~2023-05-21 06:50] MED LIST changes: -NADO40TA PO; +NADO40TA6 PO; +NALT50TA4 PO; +NS 1,000 ML IV ONE; +VIVI380I
[2023-05-21] MEDS ORDERED: propofoL 500 MG/50 ML VIAL As Ordered ONE (07:30)
[2023-05-21] MEDS ORDERED: LIDOCAINE 2% 100MG/5ML SDV (FOR ANES.) As Ordered ONE (07:30)
[2023-05-21] MEDS ORDERED: fentaNYL 100 MCG/2 ML INJECTION As Ordered ONE (07:31)
[2023-05-21 08:49] VITALS: TEMP 98
[2023-05-21 09:05] VITALS: BP 172/84; O2SAT 99
== END 2023-05-21 09:05 | disposition home or self-care (01) ==
LOC: M OPP 06:50
PROVIDERS: ATTEND Internal Medicine Gastroenterology
DX: Z12.11 Encounter for screening for malignant neoplasm of colon (principal); K63.5 Polyp of colon; K64.0 First degree hemorrhoids; R12 Heartburn; I10 Essential (primary) hypertension; K76.0 Fatty (change of) liver, not elsewhere classified; K21.9 Gastro-esophageal reflux disease without esophagitis; M06.9 Rheumatoid arthritis, unspecified; M79.7 Fibromyalgia; F41.0 Panic disorder [episodic paroxysmal anxiety]; F31.9 Bipolar disorder, unspecified; G43.909 Migraine, unspecified, not intractable, without status migrainosus; F43.10 Post-traumatic stress disorder, unspecified; J44.9 Chronic obstructive pulmonary disease, unspecified; F17.210 Nicotine dependence, cigarettes, uncomplicated; Z95.0 Presence of cardiac pacemaker; Z88.0 Allergy status to penicillin; Z88.5 Allergy status to narcotic agent; Z91.010 Allergy to peanuts; Z91.013 Allergy to seafood; Z91.040 Latex allergy status; Z79.899 Other long term (current) drug therapy
CPT/HCPCS: 43239; 45385; 88305; J3010

== ENCOUNTER → 2023-07-30 | Outpatient (CLI) | payer OTHER ==
[~2023-07-30] MED LIST changes: -NS 1,000 ML IV ONE
== END ==
LOC: M WUC 11:18
PROVIDERS: ATTEND Nurse Practitioner Adult Health
DX: R05.9 Cough, unspecified (principal)

== ENCOUNTER 2023-10-06 11:29 | Emergency (ER) | payer OTHER ==
[~2023-10-06] VITALS: Ht 162.6 cm; Wt 82.7 kg
[~2023-10-06 11:29] MED LIST changes: -KLON1TAB; -KLON1TAB PO; +KLON1TAB13; +KLON1TAB13 PO
[2023-10-06 14:13] VITALS: BP 131/85; TEMP 97.1; O2SAT 94
== END 2023-10-06 14:15 | disposition home or self-care (01) ==
LOC: M ED 11:29
DX: S46.011A Strain of muscle(s) and tendon(s) of the rotator cuff of right shoulder, initial encounter (principal); V49.40XA Driver injured in collision with unspecified motor vehicles in traffic accident, initial encounter; Y92.9 Unspecified place or not applicable; Y93.9 Activity, unspecified; Y99.9 Unspecified external cause status; Z88.8 Allergy status to other drugs, medicaments and biological substances; Z88.0 Allergy status to penicillin; Z91.010 Allergy to peanuts; Z91.013 Allergy to seafood; Z91.040 Latex allergy status; Z79.899 Other long term (current) drug therapy

== ENCOUNTER → 2023-11-17 | Outpatient (CLI) | payer OTHER | LOC: M SOG 08:11 | PROVIDERS: ATTEND Physician Assistant | DX: M54.6 Pain in thoracic spine (principal); M25.511 Pain in right shoulder ==

== ENCOUNTER → 2023-12-29 | Outpatient (CLI) | payer OTHER | LOC: M SOG 08:01 | PROVIDERS: ATTEND Physician Assistant | DX: M54.6 Pain in thoracic spine (principal); M25.511 Pain in right shoulder ==

== ENCOUNTER → 2024-01-14 | Outpatient (CLI) | payer OTHER | LOC: M WHC 07:35 | PROVIDERS: ATTEND Internal Medicine | DX: Z12.31 Encounter for screening mammogram for malignant neoplasm of breast (principal) ==

== ENCOUNTER → 2024-02-09 | Outpatient (REF) | payer OTHER ==
[2024-02-09 19:27] LABS: FERRITIN 13.4 NG/ML (7.3-270.7)
== END ==
LOC: M LAB REF 16:31
PROVIDERS: ATTEND Internal Medicine
DX: R53.83 Other fatigue (principal)

== ENCOUNTER → 2024-02-24 | Outpatient (CLI) | payer OTHER | LOC: M SOG 08:08 | PROVIDERS: ATTEND Physician Assistant | DX: Z53.9 Procedure and treatment not carried out, unspecified reason (principal) ==

== ENCOUNTER → 2024-03-10 | Outpatient (CLI) | payer OTHER | LOC: M RAD 10:34 | PROVIDERS: ATTEND Internal Medicine | DX: M25.551 Pain in right hip (principal); M25.552 Pain in left hip ==

== ENCOUNTER → 2024-08-04 | Outpatient (CLI) | payer OTHER ==
[~2024-08-04] MED LIST changes: +GABA-1172 PO; +GABA-1490 PO; -GABA-282 PO; -GABA600T4 PO; +NADO40TA40 PO; -NADO40TA6 PO; -OLAN15TA13 PO; +OLAN15TA69 PO; -OLAN2.5T25; +OLAN2.5T53
== END ==
LOC: M PLAIMG 13:50
PROVIDERS: ATTEND Physician Assistant
DX: M47.896 Other spondylosis, lumbar region (principal)

== ENCOUNTER → 2024-08-27 | Outpatient (CLI) | payer OTHER | LOC: M OUTALCOH 09:10 | PROVIDERS: ATTEND Psychiatry & Neurology Psychiatry | DX: F10.20 Alcohol dependence, uncomplicated (principal); F11.20 Opioid dependence, uncomplicated; F13.20 Sedative, hypnotic or anxiolytic dependence, uncomplicated; F17.200 Nicotine dependence, unspecified, uncomplicated ==

== ENCOUNTER 2024-09-23 09:51 | Outpatient (RCR) | payer OTHER | END 2024-09-24 | LOC: M OUTALCOH 09:51 | PROVIDERS: ATTEND Psychiatry & Neurology Psychiatry | DX: F11.20 Opioid dependence, uncomplicated (principal); F17.200 Nicotine dependence, unspecified, uncomplicated ==

== ENCOUNTER → 2024-11-11 | Outpatient (REF) | payer OTHER ==
[2024-11-11 22:47] LABS: RSV AMPLIFICATION NEGATIVE (NEGATIVE)
== END ==
LOC: M LAB REF 17:19
PROVIDERS: ATTEND Internal Medicine
DX: R05.9 Cough, unspecified (principal)

== ENCOUNTER → 2025-04-07 | Outpatient (CLI) | payer OTHER ==
[~2025-04-07] MED LIST changes: +CARB-19 PO; -CARB1TAB20 PO; -NADO20TA PO; +NADO20TA38 PO
[2025-04-07 11:24] LABS: PLATELET COUNT, AUTOMATED 220 10^3/uL (150-450)
[2025-04-07 11:37] LABS: INR 0.87
== END ==
LOC: M LAB 10:17
PROVIDERS: ATTEND Nurse Practitioner Family
DX: M96.1 Postlaminectomy syndrome, not elsewhere classified (principal); M54.16 Radiculopathy, lumbar region